=== PATIENT | female | born 1950 | race American Indian/Alaskan Native ===

== ENCOUNTER 2021-03-01 12:05 | Outpatient (CLI) | payer MEDICARE ==
[2021-03-01 12:50] LABS: Alanine Aminotransferase 19 units/L (7-56); Albumin 4.2 g/dL (3.9-5); BUN/Creatinine Ratio 20; Blood Urea Nitrogen 16 mg/dL (7-17); Calcium 9.6 mg/dL (8.4-10.2); Hemolysis Index 35
[2021-03-01 13:51] LABS: Basophils # (Auto) 0.1 K/mm3 (0.0-0.1); Eosinophils # (Auto) 0.2 K/mm3 (0.0-0.4); Eosinophils % (Auto) 2.7 % (0.0-4.3); Hematocrit 39.7 % (30.3-42.9); Hemoglobin 13.8 gm/dl (10.1-14.3); Lymphocytes # (Auto) 1.8 K/mm3 (1.2-5.4); Lymphocytes % (Auto) 29.2 % (13.4-35.0); Mean Corpuscular HGB Conc 35 % (30-34); Mean Corpuscular Volume 81 fl (79-97); Monocytes # (Auto) 0.6 K/mm3 (0.0-0.8); Monocytes % (Auto) 9.6 % (0.0-7.3); Platelet Count 207 K/mm3 (140-440); Red Blood Count 4.92 M/mm3 (3.65-5.03); Red Cell Distribution Width 14.3 % (13.2-15.2)
[2021-03-01 18:01] LABS: Erythrocyte Sedimentation Rate 9 mm/Hr (0-20)
== END 2021-03-01 12:06 | disposition home or self-care (01) ==
LOC: LAB 12:05
PROVIDERS: ATTEND Specialist
DX: G44.52 New daily persistent headache (NDPH) (principal)
CPT/HCPCS: 36415; 80053; 85025; 85652; 86140

== ENCOUNTER 2021-12-29 06:36 | Emergency (ER) | payer MEDICARE ==
--- NOTE | 2021-12-29 07:16 | XRay Report ---
XR chest routine 2V INDICATION / CLINICAL INFORMATION: CHEST PAIN. COMPARISON: 03/02/2009. FINDINGS: SUPPORT DEVICES: None. HEART /PULMONARY VASCULATURE: No significant abnormality. LUNGS / PLEURA: No significant pulmonary or pleural abnormality. No pneumothorax. ADDITIONAL FINDINGS: No significant additional findings. IMPRESSION: 1. No acute findings. Signer Name: Jaime Waldron MD Signed: 12/29/2021 7:12 AM Workstation Name: [id number]
[2021-12-29 07:46] LABS: Basophils # (Auto) 0.1 K/mm3 (0.0-0.1); Basophils % (Auto) 0.5 % (0.0-1.8); Eosinophils # (Auto) 0.3 K/mm3 (0.0-0.4); Eosinophils % (Auto) 2.7 % (0.0-4.3); Hematocrit 36.6 % (30.3-42.9); Hemoglobin 12.3 gm/dl (10.1-14.3); Lymphocytes # (Auto) 1.1 K/mm3 (1.2-5.4); Lymphocytes % (Auto) 8.9 % (13.4-35.0); Mean Corpuscular HGB Conc 34 % (30-34); Mean Corpuscular Volume 81 fl (79-97); Monocytes % (Auto) 8.3 % (0.0-7.3); Platelet Count 240 K/mm3 (140-440); Red Blood Count 4.53 M/mm3 (3.65-5.03); Red Cell Distribution Width 14.4 % (13.2-15.2)
[2021-12-29 07:47] LABS: Alanine Aminotransferase 28 units/L (7-56); Albumin 3.8 g/dL (3.9-5); BUN/Creatinine Ratio 26; Blood Urea Nitrogen 21 mg/dL (7-17); Calcium 9.2 mg/dL (8.4-10.2); Hemolysis Index 8
[2021-12-29 08:24] VITALS: BP 157/63
--- NOTE | 2021-12-29 08:39 | Emergency Department Report ---
ED Chest Pain HPI - General Chief Complaint: Chest Pain Stated Complaint: CHEST PAIN Time Seen by Provider: 12/29/21 07:50 Source: patient, family Mode of arrival: Wheelchair Limitations: No Limitations - History of Present Illness Initial Comments: 71 yo F with h/o mitral valve prolapse who now present with left sided chest pain that started around 12:30 AM tonight and progressively worsening. Pt started as doll pain then intensify to 8/10 in severity and it has been constant. She took baby Tylenol last night with minimal improvement. Pt also recently had right knee total replacement on Friday 4 days ago and currently doing rehab. She however denies any palpitation or shortness of breath. No cough, fever or chills. No other modifying or associated factors. Severity scale (0 -10): 8 - Related Data Home Medications Medication Instructions Recorded Confirmed Last Taken Metoprolol Xl [Metoprolol 25 mg PO QDAY 11/14/13 11/14/13 11/13/13 SUCCINATE ER TAB] amLODIPine/VALSARTAN [Exforge 1 each PO DAILY 11/14/13 11/14/13 11/13/13 5-160 mg Tablet] hydroCHLOROthiazide [HCTZ] 25 mg PO QDAY 11/14/13 11/14/13 11/13/13 Previous Rx's Medication Instructions Recorded Last Taken Type Ibuprofen [Motrin] 600 mg PO Q8H PRN #60 tablet 03/19/15 Unknown Rx traMADoL [Ultram] 50 mg PO Q6HR PRN #14 tablet 03/19/15 Unknown Rx Cyclobenzaprine [Flexeril] 10 mg PO TID PRN 5 Days #15 tab NS 12/29/21 Unknown Rx Allergies Allergy/AdvReac Type Severity Reaction Status Date / Time amoxicillin trihydrate Allergy Vomiting Verified 03/19/15 19:08 [From Augmentin] potassium clavulanate Allergy Vomiting Verified 03/19/15 19:08 [From Augmentin] Heart Score - HEART Score History: Slightly suspicious EKG: Normal Age: > 65 Risk factors: No known risk factors Troponin: < normal limit HEART Score: 2 - EKG Read Time Time EKG Completed: 06:40 EKG Read Time: 06:46 - Critical Actions Critical Actions: 0-3 pts:0.9-1.7%risk of adverse cardiac event.Candidate for discharge ED Review of Systems ROS: Stated complaint: CHEST PAIN Other details as noted in HPI Comment: All other systems reviewed and negative Respiratory: denies: cough, shortness of breath Cardiovascular: chest pain. denies: palpitations ED Past Medical Hx - Past Medical History Hx Hypertension: Yes Hx Congestive Heart Failure: No Hx Diabetes: No Hx Asthma: No Hx COPD: No Hx HIV: No Additional medical history: MVP, Angina - Surgical History Additional Surgical History: Cataracts removed in 06/2013 ,HYSTERECTOMY. R total knee (12/25/21) - Social History Smoking Status: Unknown if ever smoked - Medications Home Medications: Home Medications Medication Instructions Recorded Confirmed Last Taken Type Metoprolol Xl [Metoprolol 25 mg PO QDAY 11/14/13 11/14/13 11/13/13 History SUCCINATE ER TAB] amLODIPine/VALSARTAN [Exforge 1 each PO DAILY 11/14/13 11/14/13 11/13/13 History 5-160 mg Tablet] hydroCHLOROthiazide [HCTZ] 25 mg PO QDAY 11/14/13 11/14/13 11/13/13 History Ibuprofen [Motrin] 600 mg PO Q8H PRN #60 tablet 03/19/15 Unknown Rx traMADoL [Ultram] 50 mg PO Q6HR PRN #14 tablet 03/19/15 Unknown Rx Cyclobenzaprine [Flexeril] 10 mg PO TID PRN 5 Days #15 tab NS 12/29/21 Unknown Rx ED Physical Exam - General Limitations: No Limitations General appearance: alert, in no apparent distress - Head Head exam: Present: normal inspection - Eye Eye exam: Present: normal appearance Pupils: Present: normal accommodation - ENT ENT exam: Present: normal exam, normal orophraynx, mucous membranes moist - Neck Neck exam: Present: normal inspection, full ROM. Absent: tenderness - Respiratory Respiratory exam: Present: normal lung sounds bilaterally. Absent: respiratory distress, accessory muscle use - Cardiovascular Cardiovascular Exam: Present: regular rate, normal rhythm, normal heart sounds - GI/Abdominal GI/Abdominal exam: Present: soft, normal bowel sounds. Absent: distended, tenderness - Extremities Exam Extremities exam: Present: normal inspection, normal capillary refill. Absent: tenderness, pedal edema, joint swelling - Back Exam Back exam: Absent: tenderness - Neurological Exam Neurological exam: Present: alert, oriented X3 - Psychiatric Psychiatric exam: Present: normal affect, normal mood - Skin Skin exam: Present: warm, normal color ED Course Vital Signs 12/29/21 12/29/21 12/29/21 06:39 08:08 08:13 Temperature 97.9 F Pulse Rate 56 L 61 Respiratory 18 11 L 16 Rate Blood Pressure 119/91 O2 Sat by Pulse 99 99 99 Oximetry 12/29/21 12/29/21 08:15 08:21 Temperature Pulse Rate 65 60 Respiratory 14 16 Rate Blood Pressure 151/63 157/63 O2 Sat by Pulse 99 99 Oximetry JAMAAL score - Jamaal Score Age > 65: (0) No Aspirin use within the Past 7 Days: (0) No 3 or more CAD Risk Factors: (0) No 2 or more Angina events in past 24 hrs: (0) No Known CAD with more than 50% Stenosis: (0) No Elevated Cardiac Markers: (0) No ST Deviation Greater than 0.5mm: (0) No JAMAAL Score: 0 ED Medical Decision Making - Lab Data Result diagrams: 12/29/21 07:18 12/29/21 07:18 - EKG Data -: EKG Interpreted by Ks EKG shows normal: sinus rhythm Rate: normal - EKG Data 12/29/21 08:42 Noted with normal sinus rhythm at a rate of 60 bpm, with few ventricular premature complexes in this otherwise normal ECG. - Radiology Data CTA chest FINDINGS: PULMONARY EMBOLUS: None. THORACIC AORTA: No significant abnormality. HEART: No significant abnormality. CORONARY ARTERY CALCIFICATION: Absent -- None. MEDIASTINUM / CANDICE: No significant abnormality. PLEURA: No pleural effusion. No pneumothorax. LUNGS: No acute air space or interstitial disease. ADDITIONAL FINDINGS: None. UPPER ABDOMEN: No acute findings. SKELETAL STRUCTURES: No significant osseous abnormality. IMPRESSION: 1. No CT evidence for pulmonary embolism. 2. No acute intrathoracic findings. - Medical Decision Making Here with chest pain/pressure concern for likely PE considering that this --differential could be but not limited to myocardial infarction, pulmonary embolism, costochondritis, anxiety, gastritis, GERD, pancreatitis, and or pyelonephritis--in order to rule out the above-- so will go ahead and order routine cardiopulmonary work-up that include troponin, EKG, chest x-ray, BNP, CKMB, and CBC, CMP and urinalysis for any correctable infectious process or electrolyte abnormality as a cause. Initial ECG noted without any abnormality-- with normal troponin but abnormal d- dimer -- ordered CTA chest to rule out PE-- Pt has negative cardiac workup with 2 negative cardiac troponin -- though noted with elevated d-dime but negative CTA for PE-- pt reassured and discharged home on muscle relaxant to combine with pain medication -- with close follow up with PCP -- Critical care attestation.: If time is entered above; I have spent that time in minutes in the direct care of this critically ill patient, excluding procedure time. ED Disposition Clinical Impression: Non-cardiac chest pain Disposition: HOME / SELF CARE / HOMELESS Is pt being admited?: No Does the pt Need Aspirin: No Condition: Stable Instructions: Nonspecific Chest Pain, Adult, [id number] Additional Instructions: It is okay to take your new muscle relaxant in combination with your pain medication Call and schedule follow-up with your primary doctor in the next 3 to 5 days for progress. Please do not hesitate to call or return to emergency room if your symptoms worsen. Prescriptions: Cyclobenzaprine [Flexeril] 10 mg PO TID PRN 5 Days #15 tab NS PRN Reason: Muscle Spasm Referrals: ZAINAB NÚÑEZ MD [Primary Care Provider] - 3-5 Days Time of Disposition: 14:35
[2021-12-29] MEDS ORDERED: MORPHINE 4 MG/1 ML INJ IV ONE (08:43)
--- NOTE | 2021-12-29 13:18 | Cat Scan Report ---
CTA CHEST WITH CONTRAST INDICATION / CLINICAL INFORMATION: chest pain with elevated d-dimer. TECHNIQUE: Axial CT images were obtained through the chest after injection of IV contrast. 3 plane IA P and/or 3D reconstructions were produced. All CT scans at this location are performed using CT dose reduction for ALARA by means of automated exposure control. COMPARISON: None available. FINDINGS: PULMONARY EMBOLUS: None. THORACIC AORTA: No significant abnormality. HEART: No significant abnormality. CORONARY ARTERY CALCIFICATION: Absent -- None. MEDIASTINUM / CANDICE: No significant abnormality. PLEURA: No pleural effusion. No pneumothorax. LUNGS: No acute air space or interstitial disease. ADDITIONAL FINDINGS: None. UPPER ABDOMEN: No acute findings. SKELETAL STRUCTURES: No significant osseous abnormality. IMPRESSION: 1. No CT evidence for pulmonary embolism. 2. No acute intrathoracic findings. Signer Name: Shurki Martin MD Signed: 12/29/2021 1:14 PM Workstation Name: [id number]
--- NOTE | 2021-12-31 10:12 | Electrocardiograph Report ---
[facility] Test Date: 2021-12-29 Test Time: 06:40:56 Pat Name: JOLANTA DONNELLY Department: Room: Gender: F [employer] Secretary: TOSHA : 1950 Requested By: OSVALDO MAGDALENO Order Number: [id number] Reading MD: Dre Lemon Measurements Intervals [place] Rate: 60 P: 57 VA: 133 QRS: 41 QRSD: 67 T: 17 QT: 408 QTc: 400 Interpretive Statements Sinus rhythm Ventricular premature complex No previous ECG available for comparison Electronically Signed On 12-31-2021 10:12:34 EDT by Dre Lemon
== END 2021-12-29 14:58 | disposition home or self-care (01) ==
LOC: ED 06:36
DX: R07.9 Chest pain, unspecified (principal); I10 Essential (primary) hypertension; Z91.09 Other allergy status, other than to drugs and biological substances; Z79.899 Other long term (current) drug therapy
CPT/HCPCS: 36415; 71046; 71275; 80053; 84484; 85025; 85379; 93005; 96374; 99284; J2270; Q9967